=== PATIENT | female | born 1950 | race Caucasian/White ===

== ENCOUNTER → 2018-05-30 | Outpatient (CLI) | payer MEDICARE ==
--- NOTE | 2018-05-31 10:58 | MM ---
Reason for exam: screening (asymptomatic). Last mammogram was performed 16 years and 3 months ago. History: Patient is postmenopausal. Physical Findings: A clinical breast exam by your physician is recommended on an annual basis and results should be correlated with mammographic findings. MG Screening Mammo w CAD Bilateral CC and MLO view(s) were taken. Prior study comparison: February 14, 2002, bilateral screening mammogram. March 26, 1997, bilateral screening mammogram. The breast tissue is heterogeneously dense. This may lower the sensitivity of mammography. Stable benign calcifications. No significant changes when compared with prior studies. ASSESSMENT: Benign, BI-RAD 2 RECOMMENDATION: Routine screening mammogram of both breasts in 1 year.
== END | disposition home or self-care (01) ==
LOC: RADMAMWWP 15:27
PROVIDERS: ATTEND Family Medicine
DX: Z12.31 Encounter for screening mammogram for malignant neoplasm of breast (principal)
CPT/HCPCS: 77067

== ENCOUNTER → 2019-08-15 | Outpatient (CLI) | payer MEDICARE ==
--- NOTE | 2019-08-18 10:53 | MM ---
Reason for exam: screening (asymptomatic). Last mammogram was performed 1 year and 2 months ago. History: Patient is postmenopausal. Physical Findings: A clinical breast exam by your physician is recommended on an annual basis and results should be correlated with mammographic findings. MG 3D Screening Mammo W/Cad Bilateral CC and MLO view(s) were taken. Prior study comparison: May 30, 2018, bilateral MG screening mammo w CAD. The breast tissue is heterogeneously dense. This may lower the sensitivity of mammography. Benign bilateral oil cyst calcifications. Centrally located asymmetric density right CC view is unchanged. No significant changes when compared with prior studies. ASSESSMENT: Benign, BI-RAD 2 RECOMMENDATION: Routine screening mammogram of both breasts in 1 year.
== END | disposition home or self-care (01) ==
LOC: RADMAMWWP 15:29
PROVIDERS: ATTEND Family Medicine
DX: Z12.31 Encounter for screening mammogram for malignant neoplasm of breast (principal)
CPT/HCPCS: 77063; 77067

== ENCOUNTER → 2020-12-22 | Outpatient (CLI) | payer MEDICARE ==
--- NOTE | 2020-12-24 14:46 | MM ---
Reason for exam: screening (asymptomatic). Last mammogram was performed 1 year and 4 months ago. History: Patient is postmenopausal. Physical Findings: A clinical breast exam by your physician is recommended on an annual basis and results should be correlated with mammographic findings. MG 3D Screening Mammo W/Cad Bilateral CC and MLO view(s) were taken. Prior study comparison: August 15, 2019, bilateral MG 3d screening mammo w/cad. May 30, 2018, bilateral MG screening mammo w CAD. The breast tissue is heterogeneously dense. This may lower the sensitivity of mammography. Focal asymmetry central right upper outer quadrant anteriorly is unchanged. Benign oil cyst calcifications bilaterally. No significant changes when compared with prior studies. ASSESSMENT: Benign, BI-RAD 2 RECOMMENDATION: Routine screening mammogram of both breasts in 1 year.
== END | disposition home or self-care (01) ==
LOC: RADMAMWWP 12:24
PROVIDERS: ATTEND Family Medicine
DX: Z12.31 Encounter for screening mammogram for malignant neoplasm of breast (principal); Z78.0 Asymptomatic menopausal state
CPT/HCPCS: 77063; 77067

== ENCOUNTER → 2022-07-21 | Outpatient (CLI) | payer MEDICARE ==
--- NOTE | 2022-07-21 18:20 | CT ---
EXAMINATION TYPE: CT shoulder RT wo con CT DLP: 797.5 mGycm, Automated exposure control for dose reduction was used. DATE OF EXAM: 07/21/2022 5:21 PM COMPARISON: None CLINICAL INDICATION:Female, 71 years old with history of Right shoulder; S42.211A; PHH, fracture TECHNIQUE: Axial images were obtained of the right shoulder without the use of IV contrast. Addition al coronal and sagittal reformatted images and soft tissue and bone window were obtained for review. 3-D reconstruction was created on a separate workstation. FINDINGS: There is an acute comminuted fracture proximal right humerus at the neck extending into the greater tuberosity. No dislocation of the humeral head in relation to the glenoid. There is medial d isplacement of the distal humerus relation to the humeral head approximately 1.6 cm. Some mild shorte leigh is identified. There is surrounding soft tissue edema and trace joint effusion. Moderate AC joint arthropathy with joint space narrowing, sclerosis, subchondral cystic changes. Mild inferior spurring noted. Multilevel degenerative changes of the visualized cervical spine. Centrilobular emphysematous changes . IMPRESSION: Acute comminuted mild to moderately displaced proximal humerus fracture at the neck extending into th e greater tuberosity.
== END | disposition home or self-care (01) ==
LOC: RADCTMAIN 16:30
PROVIDERS: ATTEND Orthopaedic Surgery
DX: S42.251A Displaced fracture of greater tuberosity of right humerus, initial encounter for closed fracture (principal); S42.211A Unspecified displaced fracture of surgical neck of right humerus, initial encounter for closed fracture; S50.01XA Contusion of right elbow, initial encounter; M19.011 Primary osteoarthritis, right shoulder; M25.521 Pain in right elbow; X58.XXXA Exposure to other specified factors, initial encounter

== ENCOUNTER 2022-08-04 12:48 | Inpatient (IN) | payer MEDICARE ==
[2022-08-02 17:47] VITALS: BMI 37.0
[~2022-08-04 12:48] MED LIST: MIDAZOLAM 2 MG/2 ML VIAL IV PRN
[2022-08-04] MEDS ORDERED: ONDANSETRON 4 MG/2 ML VIAL ONE (14:14)
[2022-08-04] MEDS: LACTATED RINGERS 1,000 ML IV ONE ×2 (14:15→19:00)
[2022-08-04 14:17] LABS: Glucose,Whole Blood 112 mg/dL (70-110)
[2022-08-04] MEDS ORDERED: ONDANSETRON 4 MG/2 ML VIAL IVP ONE (14:20)
[2022-08-04] MEDS ORDERED: DEXAMETHASONE SOD PHOSPHATE 4 MG/ML 1 ML VIAL IVP ONE (14:21)
[2022-08-04] MEDS ORDERED: MIDAZOLAM 2 MG/2 ML VIAL IVP ONE (14:22)
[2022-08-04] MEDS ORDERED: fentaNYL (PF) 50 MCG/ML 2 ML AMP IVP ONE (14:22)
[2022-08-04] MEDS ORDERED: fentaNYL (PF) 50 MCG/ML 2 ML AMP ONE (14:37)
[2022-08-04] MEDS ORDERED: PHENYLEPHRINE-0.9% NACL SYG 1,000 MCG/10 ML SYRINGE ONE (14:37)
[2022-08-04] MEDS ORDERED: SUCCINYLCHOLINE CHLORIDE 200 MG/10 ML VIAL IV ONE (14:37)
[2022-08-04] MEDS ORDERED: PROPOFOL 10 MG/ML 20 ML VIAL IV ONE (14:37)
[2022-08-04] MEDS ORDERED: GLYCOPYRROLATE 0.2 MG/ML 2 ML VIAL ONE (14:37)
[2022-08-04] MEDS ORDERED: ROCURONIUM 10 MG/ML (5 ML VIAL) IV ONE (14:37)
[2022-08-04] MEDS ORDERED: ROPIVACAINE 5 MG/ML 30 ML VIAL ONE (14:37)
[2022-08-04] MEDS ORDERED: NEOSTIGMINE 1 MG/ML 10 ML VIAL ONE (14:37)
[2022-08-04] MEDS ORDERED: MIDAZOLAM 2 MG/2 ML VIAL ONE (14:37)
[2022-08-04] MEDS ORDERED: LIDOCAINE 2% INJ 20 MG/ML (2 ML VIAL) ONE (14:37)
[2022-08-04] MEDS ORDERED: TRANEXAMIC 1,000 MG/100ML-NACL PREMIX BAG ONE (14:37)
[2022-08-04] MEDS ORDERED: IV FLUID CONTINUATION 1,000 ML IV ONE (14:41)
[2022-08-04] MEDS ORDERED: TRANEXAMIC 1,000 MG/100ML-NACL 1,000 MG in SALINE 1 100ML.BAG IVPB PRN (15:00)
--- NOTE | 2022-08-04 15:41 | P.ANPRN ---
Procedure Note - Anesthesia - Nerve Block Performed Right Interscalene Single Time Out Performed: Yes Date of Procedure: 08/04/22 Procedure Start Time: 14: Procedure Stop Time: : Location of Patient: PreOp Indication: Acute Post-Operative Pain, Requested by Surgeon Specifically requested for management of pain by DrBalaji: León Doll Sedation Type: Sedate with meaningful contact maintained Preparation: Sterile Prep Position: Sitting Catheter: None Needle Types: Pajunk Needle Gauge: 21 Ultrasound used to visualize needle placement: Yes Ultrasound used to observe medication spread: Yes Injectate: 0.5% Ropivacaine (see comment for volume) (25 ml + 4 mg Dexamethasone) Blood Aspirated: No Pain Paresthesia on Injection Noted: No Resistance on Injection: Normal Image Stored and Saved: Yes Events: Uneventful and Well Tolerated
[2022-08-04] MEDS ORDERED: ceFAZolin 1,000 MG in SODIUM CHLORIDE 0.9% 1,000 ML IRRIGATION ONE (16:21)
--- NOTE | 2022-08-04 16:22 | P.OP ---
Date of Procedure: 08/04/22 Procedure(s) Performed: PREOPERATIVE DIAGNOSES: 1. Right shoulder proximal humerus fracture, 3 part POSTOPERATIVE DIAGNOSES: 1. Right shoulder proximal humerus fracture, 3 part 2. Right shoulder rotator cuff noted to be intact PROCEDURES PERFORMED: 1. Right shoulder proximal humerus fracture open reduction and internal fixation ANESTHESIA: Gen. ACCOUNT STRATEGIST: Radha Mendosa PA-C (assistance with exposure, hemostasis, retraction, fixation, closure, dressing) COMPLICATIONS: None ESTIMATED BLOOD LOSS: 100 mL. DISPOSITION: To post-anesthesia care unit INDICATIONS: Ruth Ann is a 71 year old with a history of falling and sustaining a right shoulder proximal humerus fracture. She is low functional demand. The fracture is displaced and has been analyzed by computed tomography scan, for preoperative planning. I have advised reduction and fixation of the proximal humerus fracture using hardware. I have described the steps of the operation as well as potential risks and complications and the patient wishes to proceed. These risks and potential complications are inclusive of, but not limited to: Bleeding, infection, scarring, discomfort, blood vessel and/or nerve damage, stiffness, hardware irritation, malunion, nonunion, arthritis, further fracture, rotator cuff injury, muscular injury to the deltoid, need for prolonged physical therapy, and other risks, including . I have also explained the seriousness of this kind of fracture and the resultant predictable stiffness and disability that results typically from this kind of fracture even despite modern surgical treatment. The patient wishes to proceed and has signed the consent form. PROCEDURE: After appropriate consent was obtained, the patient was taken to the operating room placed in the supine position. Anesthesia was initiated, and after confirmation of adequate anesthesia, the patient was carefully positioned in the beachchair position. Care was taken to make sure that all pressure points were adequately padded. A small bump was placed beneath the operative scapula. Prepping and draping were completed in the usual aseptic fashion, with the arm draped free, using ChloraPrep. Timeout was called, confirming patient identity, side, procedure, and administration of antibiotics. Standard deltopectoral incision was created with a #10 blade from the inferior border of the clavicle, across the medial aspect of the coracoid process, and down to the deltoid insertion of the humerus. Total size of the incision was approximately 7 inches. The incision was deepened using Bovie electrocautery and meticulous hemostasis was obtained. Subcutaneous dissection was carried down to muscular fascia. The cephalic vein was identified and retracted along with the deltoid laterally. Muscular perforators into the pectoralis muscle were carefully identified and cauterized. The deltopectoral interval was then carefully and bluntly and mobilization of the deep surface of the deltoid was accomplished using a Guzmán elevator. A deltoid retractor was then placed and manual retraction of the pectoralis was performed. Standard self- retaining retractors were applied in the tissues the red stripe adjacent to the strap tendons was incised using cautery and self-retaining retractor was applied beneath the strap tendons. Excellent visualization was accomplished with this method and a small portion of the super area or aspect of the pectoralis tendon was released for good exposure to the humerus. The fracture was identified and organizing hematoma was removed. Direct visualization of the rotator cuff was accomplished by removing subdeltoid and subacromial bursa as necessary. There was no evidence of significant rotator cuff tear or chronic impingement syndrome. The fracture was carefully mobilized with attention to produce as little devascularization of the fragments as possible. Therefore, soft tissue attachments to the fragments were left intact as much as possible. C-arm imaging was used to assess reduction of the fracture. The shaft fragment was realigned with the humeral head fragment using a combs elevator on the medial aspect of the humeral shaft as well as gentle manipulation of the shoulder and proximal fragments. Once an acceptable reduction had been obtained with fluoroscopy, provisional pin fixation was performed and the reduction was rechecked. A Synthes proximal humeral periarticular plate was inserted with the posterior portion of the buttress against the greater tuberosity and the medial portion of the plate just lateral to the bicipital groove. Care was taken to make sure that the biceps tendon was not trapped beneath the plate or in the fr acture. The plate was positioned superiorly or inferiorly as needed to reach an optimal position. This was assessed using C-arm imaging. A preliminary pin was placed and C-arm images were taken with gentle rotation of the of the shoulder to assess in multiple planes. The slotted screw hole was then utilized to place a 3.5 mm bicortical fully threaded cortical screw. The screw was used to bring the shaft to the plate and provide buttress support proximally against the humeral head. The fracture further reduced very nicely with this step. C-arm imaging confirmed proper placement and orientation of the hardware. Proximal locking screws were then placed. All screws were measured for depth and 6 mm was subtracted from the measurement so that there would be no chance of inadvertent joint penetration of the head. A final locking screw was placed in the distal hole of the plate to further secure the shaft fragment. Final C-arm imaging in both the AP plane and a rotated view to see a lateral projection of the proximal humerus, showed excellent alignment of the fracture. All screws were critically evaluated to make sure that there was no significant chance of screw penetration even with some anticipated subsidence of the humeral head. Gentle range of motion was performed in flexion, abduction, and rotation to assess stability of the fracture site. The fracture was completely stable, including the greater tuberosity fragment. Additional fixation of the greater tuberosity fragments was performed with a #2 Fiberwire with reverse mattress sutures through the superior cuff attachment and then through a hole in the plate. Thorough irrigation and final hemostasis was obtained, and final C-arm images were taken and saved. The wound was then thoroughly irrigated with zari l saline and the portion of the lateralis tendon that was released for exposure was repaired using 0 Vicryl suture. Closure of the deltopectoral interval was performed using 0 Vicryl suture followed by 2-0 Vicryl suture in subcu tissues and standard skin closure using Dermabond. Sterile dressing was then applied and the patient's arm was placed into a sling Patient tolerated the procedure well and taken to recovery room in stable condition. Sponge and needle counts were correct.
--- NOTE | 2022-08-04 16:44 | XR ---
Intraoperative/procedural fluoroscopic services were provided for ORIF right humerus fracture. Total fluoroscopy time is 32.6 seconds with a total of 2 submitted images to PACS. Total DAP 0.8926 Gycm2. Please see the operative note for further details.
[2022-08-04] MEDS ORDERED: TEMAZEPAM 15 MG CAP PO PRN (16:48)
[2022-08-04] MEDS ORDERED: HYDROmorphone 0.5 MG/0.5 ML SYRINGE IVP PRN ×3 (16:48)
[2022-08-04] MEDS ORDERED: SENNOSIDES-DOCUSATE SODIUM 1 EACH TAB PO PRN (16:48)
[2022-08-04] MEDS ORDERED: ONDANSETRON 4 MG/2 ML VIAL IVP PRN (16:48)
[2022-08-04] MEDS: HYDROmorphone 0.5 MG/0.5 ML SYRINGE IVP ONE ×2 (17:05→17:25)
[2022-08-04 17:40] LABS: Glucose,Whole Blood 130 mg/dL (70-110)
[2022-08-04] MEDS ORDERED: LACTATED RINGERS 1,000 ML IV ONE (17:45)
[2022-08-04] MEDS: LACTATED RINGERS 1,000 ML IV SCH ×4 (19:00→23:30)
[2022-08-04 21:12] LABS: Glucose,Whole Blood 165 mg/dL (70-110)
[2022-08-04] MEDS: HYDROcodone/APAP 5-325MG 1 EACH TAB PO PRN (23:29)
[2022-08-05] MEDS ORDERED: DEXTROSE 50% SYRINGE 50 ML IVP PRN ×2 (05:58)
[2022-08-05] MEDS: HYDROcodone/APAP 5-325MG 1 EACH TAB PO PRN ×3 (06:31→18:00)
[2022-08-05] MEDS: INSULIN ASPART (NovoLOG) 100 UNIT/ML VIAL SQ SCH ×4 (06:33→20:05)
[2022-08-05 06:34] LABS: Glucose,Whole Blood 136 mg/dL (70-110)
[2022-08-05 06:34] LABS: Basophils % (A) 0 %; Eosinophils % (A) 0 %; HCT 32.8 % (34.0-46.0); HGB 10.6 gm/dL (11.4-16.0); Lymphocytes # (A) 0.6 k/uL (1.0-4.8); Lymphocytes % (A) 7 %; MCH 29.4 pg (25.0-35.0); MCHC 32.2 g/dL (31.0-37.0); MCV 91.3 fL (80.0-100.0); Mean Platelet Volume 7.7; Monocytes # (A) 0.4 k/uL (0-1.0); Monocytes % (A) 4 %; Neutrophils # (A) 7.9 k/uL (1.3-7.7); Neutrophils % (A) 88 %; Platelet Count 234 k/uL (150-450); RBC 3.59 m/uL (3.80-5.40); RDW 13.5 % (11.5-15.5); WBC 8.9 k/uL (3.8-10.6)
[2022-08-05 07:05] LABS: African American GFR (CKD) >90 (>60 ml/min/1.73 sqM); Anion Gap 5 mmol/L; Blood Urea Nitrogen 16 mg/dL (7-17); Calcium 8.6 mg/dL (8.4-10.2); Carbon Dioxide 26 mmol/L (22-30); Chloride 104 mmol/L (98-107); Glucose 141 mg/dL (74-99); Magnesium 1.7 mg/dL (1.6-2.3); Non-African American GFR(CKD) >90 (>60 ml/min/1.73 sqM); Potassium 4.2 mmol/L (3.5-5.1); Sodium 135 mmol/L (137-145)
[2022-08-05] MEDS: amLODIPine 2.5 MG TAB PO SCH (09:37)
--- NOTE | 2022-08-05 11:18 | P.PN ---
Subjective Progress Note Date: 08/05/22 This patient is a 71- year old female who is status-post right proximal humerus open reduction internal fixation on 08/04/[address] Doll. Today is post-operative #1. Patient is examined bedside. She states pain in her right shoulder is well-controlled at this time. She is comfortable. Per nursing, physical therapy evaluated the patient is recommending rehab due to mobility and safety concerns, as patient lives alone. No new complaints. Vital signs stable. Objective - Vital Signs Vital signs: Vital Signs Temp 98.8 F 08/05/22 07:00 Pulse 75 08/05/22 07:00 Resp 17 08/05/22 07:00 BP 115/68 08/05/22 07:00 Pulse Ox 91 L 08/05/22 07:00 FiO2 Intake & Output 08/04/22 08/05/22 08/05/22 18:59 06:59 18:59 Intake Total 1351 250 Output Total 100 Balance 1251 250 Weight 86 kg Intake: IV 1351 Oral 250 Output: Estimated Blood Loss 100 Other: Voiding Method Toilet # Voids 1 1 - Exam On examination, patient is sitting up in bed in no apparent distress. She is alert and orientated x3. On inspection of the right shoulder, there is a shoulder immobilizer in place. There is a clean, dry, intact surgical dressing in place. Motor and sensory function intact right upper extremity. Right upper extremity warm and well perfused. Radial pulse easily palpable. - Labs CBC & Chem 7: 08/05/22 06:05 08/05/22 06:05 Labs: Abnormal Lab Results - Last 24 Hours (Table) 08/04/22 08/04/22 08/04/22 Range/Units 14:14 17:37 21:10 RBC (3.80-5.40) m/uL Hgb (11.4-16.0) gm/dL Hct (34.0-46.0) % Neutrophils # (1.3-7.7) k/uL Lymphocytes # (1.0-4.8) k/uL Sodium (137-145) mmol/L Glucose (74-99) mg/dL POC Glucose (mg/dL) 112 H 130 H 165 H (70-110) mg/dL 06/17/23 06/17/23 06/17/23 Range/Units 06:05 06:05 06:33 RBC 3.59 L (3.80-5.40) m/uL Hgb 10.6 L (11.4-16.0) gm/dL Hct 32.8 L (34.0-46.0) % Neutrophils # 7.9 H (1.3-7.7) k/uL Lymphocytes # 0.6 L (1.0-4.8) k/uL Sodium 135 L (137-145) mmol/L Glucose 141 H (74-99) mg/dL POC Glucose (mg/dL) 136 H (70-110) mg/dL Assessment and Plan Assessment: Status-post right proximal humerus open reduction internal fixation on 08/04/22. Post-op day #1. Plan: - Keep shoulder immobilizer in place at all times. No use of right upper extremity. - Keep operative dressing in place. - Pain medication as needed. - Internal medicine for marcos-op medical management. - Case management consulted for discharge planning. Per physical therapy, rehab may be recommended.
[2022-08-05 11:54] LABS: Glucose,Whole Blood 106 mg/dL (70-110)
[2022-08-05] MEDS ORDERED: MAGNESIUM HYDROXIDE 2,400 MG/10 ML CUP PO PRN (12:09)
[2022-08-05] MEDS: ALBUTEROL NEBULIZED 2.5 MG/3 ML INHALATION PRN ×2 (12:18→22:01)
[2022-08-05] MEDS: LACTATED RINGERS 1,000 ML IV SCH ×2 (12:28→20:14)
--- NOTE | 2022-08-05 12:44 | P.CONS ---
History of Present Illness - Reason for Consult Consult date: 08/05/22 Medical management - History of Present Illness History of present illness; patient is a 71-year-old lady with history of hy pertension, hyperlipidemia who presented to the hospital for elective procedure with orthopedics. Patient apparently had a fall 17 days ago resulting in a right shoulder proximal humerus fracture. The fracture was displaced and orthopedics evaluated the patient and recommended surgery. Patient underwent open reduction internal fixation for the fracture, postoperatively the medicine team were consulted. REVIEW OF SYSTEMS: CONSTITUTIONAL: No fever, no malaise, no fatigue. Complaining of generalized weakness HEENT: No recent visual problems or hearing problems. Denied any sore throat. CARDIOVASCULAR: No chest pain, orthopnea, PND, no palpitations, no syncope. PULMONARY: No shortness of breath, no cough, no hemoptysis. GASTROINTESTINAL: No diarrhea, no nausea, no vomiting, no abdominal pain. NEUROLOGICAL: No headaches HEMATOLOGICAL: Denies any bleeding or petechiae. GENITOURINARY: Denies any burning micturition, frequency, or urgency. MUSCULOSKELETAL/RHEUMATOLOGICAL: Pain in right arm at the site of surgery ENDOCRINE: Denies any polyuria or polydipsia. The rest of the 14-point review of systems is negative. PHYSICAL EXAMINATION: GENERAL: The patient is alert and oriented x3, not in any acute distress. Well developed, well nourished. HEENT: Pupils are round and equally reacting to light. EOMI. No scleral icterus. No conjunctival pallor. Normocephalic, atraumatic. No pharyngeal erythema. No thyromegaly. CARDIOVASCULAR: S1 and S2 present. No murmurs, rubs, or gallops. PULMONARY: Chest is clear to auscultation, no wheezing or crackles. ABDOMEN: Soft, nontender, nondistended, normoactive bowel sounds. No palpable organomegaly. MUSCULOSKELETAL: Right arm sling seen EXTREMITIES: No cyanosis, clubbing, or pedal edema. NEUROLOGICAL: Gross neurological examination did not reveal any focal deficits. SKIN: No rashes. Assessment and plan Status post open reduction internal fixation of right shoulder proximal humerus fracture Hypertension Hyperlipidemia Cut-kqwyoxk-exudhjqns diabetes mellitus Plan; Monitor vital signs Monitor CBC Continue pain management per orthopedics team Continue DVT prophylaxis per orthopedics team Continue Norvasc Continue Lipitor for hyperlipidemia Continue metformin Continue breathing treatments with albuterol inhaler Consult PT and OT Past Medical History Past Medical History: Asthma, Hyperlipidemia, Hypertension Additional Past Medical History / Comment(s): dtr n law states "dislocated rt shoulder after fall when missed a step going upstairs-was seen at [facility] in ER where attempted x3 to reduce the displacement causing a fx rt humurus","prediabetes" History of Any Multi-Drug Resistant Organisms: None Reported Additional Past Surgical History / Comment(s): sinus surgery Additional Past Anesthesia/Blood Transfusion Reaction / Comm: dtr n law stated "b/p dropped to sys 70s w/ sedation in ER at [facility] to reduce disl ocation". no hx blood transfusion Past Psychological History: No Psychological Hx Reported Smoking Status: Former smoker Past Alcohol Use History: None Reported Additional Past Alcohol Use History / Comment(s): quit smoking approx 20 yrs Past Drug Use History: Marijuana Additional Drug Use History / Comment(s): only once in a while to help sleep - Past Family History Mother History Unknown: Yes Medications and Allergies Home Medications Medication Instructions Recorded Confirmed Type Albuterol Inhaler [Ventolin Hfa 1 - 2 puff INHALATION Q6H PRN 08/02/22 08/02/22 History Inhaler] Atorvastatin [Lipitor] 20 mg PO HS 08/02/22 08/02/22 History RX: Ibuprofen 600 mg PO Q6H PRN 08/02/22 08/02/22 History RX: Montelukast Sodium 10 mg PO HS 08/02/22 08/02/22 History Tylenol Unk Dose 3 tab PO Q4H PRN 08/02/22 08/02/22 History amLODIPine [Norvasc] 2.5 mg PO QAM 08/02/22 08/04/22 History metFORMIN HCL [Glucophage] 500 mg PO DAILY 08/02/22 08/02/22 History HYDROcodone/APAP 5-325MG [[place] 1 - 2 tab PO Q6HR PRN #32 tab 08/04/22 Rx 5-325] Ondansetron Odt [Zofran Odt] 4 mg PO Q8HR PRN #14 tab 08/04/22 Rx Sennosides-Docusate Sodium 1 tab PO BID #60 tablet 08/04/22 Rx [Senokot-S] Allergies Allergy/AdvReac Type Severity Reaction Status Date / Time Penicillins Allergy Unknown Verified 08/04/22 13:53 Physical Exam Vitals: Vital Signs Temp Pulse Resp BP Pulse Ox 08/05/22 07:00 98.8 F 75 17 115/68 91 L 08/05/22 02:00 98.3 F 85 16 137/79 91 L 08/04/22 19:40 98.1 F 81 18 133/80 94 L 08/04/22 17:45 55 L 16 119/60 94 L 08/04/22 17:30 57 L 16 106/52 95 08/04/22 17:15 63 16 118/58 95 08/04/22 17:00 73 16 181/92 99 08/04/22 16:48 96.8 F L 85 16 144/67 99 08/04/22 14:27 80 16 151/70 95 08/04/22 14:07 97.8 F 75 16 159/70 95 Intake and Output 08/04/22 08/05/22 08/05/22 22:59 06:59 14:59 Intake Total 501 250 Output Total 100 Balance 401 250 Intake: IV 501 Oral 250 Output: Estimated Blood Loss 100 Other: # Voids 1 1 Weight 86 kg Results CBC & Chem 7: 08/05/22 06:05 08/05/22 06:05 Labs: Abnormal Lab Results - Last 24 Hours (Table) 08/04/22 08/04/22 08/04/22 Range/Units 14:14 17:37 21:10 RBC (3.80-5.40) m/uL Hgb (11.4-16.0) gm/dL Hct (34.0-46.0) % Neutrophils # (1.3-7.7) k/uL Lymphocytes # (1.0-4.8) k/uL Sodium (137-145) mmol/L Glucose (74-99) mg/dL POC Glucose (mg/dL) 112 H 130 H 165 H (70-110) mg/dL 08/05/22 08/05/22 08/05/22 Range/Units 06:05 06:05 06:33 RBC 3.59 L (3.80-5.40) m/uL Hgb 10.6 L (11.4-16.0) gm/dL Hct 32.8 L (34.0-46.0) % Neutrophils # 7.9 H (1.3-7.7) k/uL Lymphocytes # 0.6 L (1.0-4.8) k/uL Sodium 135 L (137-145) mmol/L Glucose 141 H (74-99) mg/dL POC Glucose (mg/dL) 136 H (70-110) mg/dL
[2022-08-05 16:54] LABS: Glucose,Whole Blood 119 mg/dL (70-110)
[2022-08-05 20:05] LABS: Glucose,Whole Blood 110 mg/dL (70-110)
[2022-08-05] MEDS: MONTELUKAST 10 MG TAB PO SCH (20:13)
[2022-08-05] MEDS: ATORVASTATIN 20 MG TAB PO SCH (20:13)
[2022-08-06] MEDS: diphenhydrAMINE 25 MG CAP PO PRN ×2 (00:42→23:03)
[2022-08-06] MEDS: HYDROcodone/APAP 5-325MG 1 EACH TAB PO PRN ×4 (00:42→20:01)
[2022-08-06] MEDS: LACTATED RINGERS 1,000 ML IV SCH ×2 (02:09→07:31)
[2022-08-06 05:55] LABS: Glucose,Whole Blood 95 mg/dL (70-110)
[2022-08-06] MEDS: INSULIN ASPART (NovoLOG) 100 UNIT/ML VIAL SQ SCH ×4 (05:56→20:50)
[2022-08-06] MEDS: metFORMIN 500 MG TAB PO SCH (07:30)
[2022-08-06] MEDS: amLODIPine 2.5 MG TAB PO SCH (07:31)
[2022-08-06] MEDS: ALBUTEROL NEBULIZED 2.5 MG/3 ML INHALATION PRN (08:02)
--- NOTE | 2022-08-06 08:58 | P.PN ---
Subjective Progress Note Date: 08/06/22 This patient is a 71- year old female who is status-post right proximal humerus open reduction internal fixation on 08/04/[address] Doll. Today is post-operative #2. Patient is examined bedside. She is up to the bedside chair. Discussed with patient physical therapy recommendations for discharge to rehab, which the patient and her family are in agreement with. Patient lives alone and is nervous returning home. Patient states pain is well- controlled. No new complaints. Objective - Vital Signs Vital signs: Vital Signs Temp 97.9 F 08/06/22 07:25 Pulse 72 08/06/22 08:17 Resp 16 08/06/22 07:25 BP 159/87 08/06/22 07:25 Pulse Ox 94 L 08/06/22 08:05 FiO2 Intake & Output 08/05/22 08/06/22 08/06/22 18:59 06:59 18:59 Other: Voiding Method Toilet Toilet # Voids 1 1 # Bowel Movements 0 - Exam On examination, patient is sitting up in bed in no apparent distress. She is alert and orientated x3. On inspection of the right shoulder, there is a sh oulder immobilizer in place. There is a clean, dry, intact surgical dressing in place. Motor and sensory function intact right upper extremity. Right upper extremity warm and well perfused. Radial pulse easily palpable. - Labs CBC & Chem 7: 08/05/22 06:05 08/05/22 06:05 Labs: Abnormal Lab Results - Last 24 Hours (Table) 08/05/22 08/05/22 Range/Units 06:05 16:50 POC Glucose (mg/dL) 119 H (70-110) mg/dL Hemoglobin A1c 6.1 H (<=6.0) % Assessment and Plan Assessment: Status-post right proximal humerus open reduction internal fixation on 08/04/22. Post-op day #2. Plan: - Keep shoulder immobilizer in place at all times. No use of right upper extremity. - Keep operative dressing in place. - Pain medication as needed. - Internal medicine for marcos-op medical management. - Case management consulted for discharge planning. Per physical therapy, rehab recommended. Anticipate discharge tomorrow to rehab.
[2022-08-06 11:10] LABS: Glucose,Whole Blood 103 mg/dL (70-110)
[2022-08-06] MEDS: polyethylene glycoL 3350 17 GM POWD.PACK PO SCH (11:42)
[2022-08-06] MEDS: DOCUSATE 100 MG CAP PO SCH ×2 (11:42→19:57)
--- NOTE | 2022-08-06 13:33 | P.PN ---
Subjective Progress Note Date: 08/06/22 patient is a 71-year-old lady with history of hypertension, hyperlipidemia who presented to the hospital for elective procedure with orthopedics. Patient apparently had a fall 17 days ago resulting in a right shoulder proximal humerus fracture. The fracture was displaced and orthopedics evaluated the patient and recommended surgery. Patient underwent open reduction internal fixation for the fracture, postoperatively the medicine team were consulted. 08/06. Patient seen and examined. Patient complaining of constipation, had a bowel movement since admission. States right shoulder pain has improved REVIEW OF SYSTEMS: CONSTITUTIONAL: No fever, no malaise,. CARDIOVASCULAR: No chest pain, no palpitations, no syncope. PULMONARY: No shortness of breath, no cough, GASTROINTESTINAL: No diarrhea, no nausea, no vomiting, no abdominal pain. NEUROLOGICAL: No headaches, no weakness, PHYSICAL EXAMINATION: GENERAL: The patient is alert and oriented x3, not in any acute distress. Well developed, well nourished. HEENT: Pupils are round and equally reacting to light. EOMI. No scleral icterus. No conjunctival pallor. Normocephalic, atraumatic. No pharyngeal erythema. No thyromegaly. CARDIOVASCULAR: S1 and S2 present. No murmurs, rubs, or gallops. PULMONARY: Chest is clear to auscultation, no wheezing or crackles. ABDOMEN: Soft, nontender, nondistended, normoactive bowel sounds. No palpable organomegaly. MUSCULOSKELETAL: No joint swelling or deformity. Right upper extremity sling seen EXTREMITIES: No cyanosis, clubbing, or pedal edema. NEUROLOGICAL: Gross neurological examination did not reveal any focal deficits. SKIN: No rashes. Assessment and plan Status post open reduction internal fixation of right shoulder proximal humerus fracture Hypertension Hyperlipidemia [id number] diabetes mellitus Monitor vital signs Monitor CBC Monitor CMP Continue pain management per orthopedics team Continue DVT prophylaxis per orthopedics team Continue Norvasc Continue Lipitor for hyperlipidemia Continue metformin DC Fluids Aggressive bowel regimen, add Colace and midline Continue breathing treatments with albuterol inhaler Consult PT and OT Objective - Vital Signs Vital signs: Vital Signs Temp 97.9 F 08/06/22 07:25 Pulse 72 08/06/22 08:17 Resp 16 08/06/22 07:25 BP 159/87 08/06/22 07:25 Pulse Ox 94 L 08/06/22 08:05 FiO2 Intake & Output 08/05/22 08/06/22 08/06/22 18:59 06:59 18:59 Other: Voiding Method Toilet Toilet # Voids 1 1 # Bowel Movements 0 - Labs CBC & Chem 7: 08/05/22 06:05 08/05/22 06:05 Labs: Abnormal Lab Results - Last 24 Hours (Table) 08/05/22 08/05/22 Range/Units 06:05 16:50 POC Glucose (mg/dL) 119 H (70-110) mg/dL Hemoglobin A1c 6.1 H (<=6.0) %
[2022-08-06 16:13] LABS: Glucose,Whole Blood 121 mg/dL (70-110)
[2022-08-06] MEDS: ATORVASTATIN 20 MG TAB PO SCH (19:57)
[2022-08-06] MEDS: MONTELUKAST 10 MG TAB PO SCH (19:57)
[2022-08-06 20:39] LABS: Glucose,Whole Blood 106 mg/dL (70-110)
[2022-08-07 05:42] LABS: Glucose,Whole Blood 102 mg/dL (70-110)
[2022-08-07] MEDS: INSULIN ASPART (NovoLOG) 100 UNIT/ML VIAL SQ SCH ×4 (05:48→20:00)
[2022-08-07] MEDS: ALBUTEROL NEBULIZED 2.5 MG/3 ML INHALATION PRN (06:07)
[2022-08-07 07:35] LABS: HCT 33.1 % (34.0-46.0); HGB 10.7 gm/dL (11.4-16.0); MCH 29.6 pg (25.0-35.0); MCHC 32.3 g/dL (31.0-37.0); MCV 91.6 fL (80.0-100.0); Mean Platelet Volume 7.3; Platelet Count 204 k/uL (150-450); RBC 3.62 m/uL (3.80-5.40); RDW 13.6 % (11.5-15.5); WBC 6.8 k/uL (3.8-10.6)
[2022-08-07 07:52] LABS: ALT 18 U/L (4-34); AST 35 U/L (14-36); African American GFR (CKD) >90 (>60 ml/min/1.73 sqM); Albumin 3.4 g/dL (3.5-5.0); Albumin/Globulin Ratio 1.4; Alkaline Phosphatase 110 U/L (38-126); Anion Gap 5 mmol/L; Blood Urea Nitrogen 11 mg/dL (7-17); Calcium 8.8 mg/dL (8.4-10.2); Carbon Dioxide 30 mmol/L (22-30); Chloride 103 mmol/L (98-107); Globulin 2.4 g/dL; Glucose 111 mg/dL (74-99); Non-African American GFR(CKD) >90 (>60 ml/min/1.73 sqM); Potassium 3.8 mmol/L (3.5-5.1); Sodium 138 mmol/L (137-145); Total Bilirubin 0.6 mg/dL (0.2-1.3); Total Protein 5.8 g/dL (6.3-8.2)
[2022-08-07] MEDS: HYDROcodone/APAP 5-325MG 1 EACH TAB PO PRN ×2 (08:54→17:49)
[2022-08-07] MEDS: amLODIPine 2.5 MG TAB PO SCH (08:54)
[2022-08-07] MEDS: DOCUSATE 100 MG CAP PO SCH ×2 (08:55→19:59)
[2022-08-07] MEDS: metFORMIN 500 MG TAB PO SCH (08:55)
[2022-08-07] MEDS: polyethylene glycoL 3350 17 GM POWD.PACK PO SCH (08:55)
[2022-08-07 11:23] LABS: Glucose,Whole Blood 115 mg/dL (70-110)
--- NOTE | 2022-08-07 13:53 | P.PN ---
Subjective Progress Note Date: 08/07/22 patient is a 71-year-old lady with history of hypertension, hyperlipidemia who presented to the hospital for elective procedure with orthopedics. Patient apparently had a fall 17 days ago resulting in a right shoulder proximal humerus fracture. The fracture was displaced and orthopedics evaluated the patient and recommended surgery. Patient underwent open reduction internal fixation for the fracture, postoperatively the medicine team were consulted. 08/06. Patient seen and examined. Patient complaining of constipation, had a bowel movement since admission. States right shoulder pain has improved 08/07. Patient seen and examined. Sitting upright in the chair. Worked with physical therapy and OT, states she feels much better REVIEW OF SYSTEMS: CONSTITUTIONAL: No fever, no malaise,. CARDIOVASCULAR: No chest pain, no palpitations, no syncope. PULMONARY: No shortness of breath, no cough, GASTROINTESTINAL: No diarrhea, no nausea, no vomiting, no abdominal pain. NEUROLOGICAL: No headaches, no weakness, PHYSICAL EXAMINATION: GENERAL: The patient is alert and oriented x3, not in any acute distress. Well developed, well nourished. HEENT: Pupils are round and equally reacting to light. EOMI. No scleral icterus. No conjunctival pallor. Normocephalic, atraumatic. No pharyngeal erythema. No thyromegaly. CARDIOVASCULAR: S1 and S2 present. No murmurs, rubs, or gallops. PULMONARY: Chest is clear to auscultation, no wheezing or crackles. ABDOMEN: Soft, nontender, nondistended, normoactive bowel sounds. No palpable organomegaly. MUSCULOSKELETAL: No joint swelling or deformity. Right upper extremity sling seen EXTREMITIES: No cyanosis, clubbing, or pedal edema. NEUROLOGICAL: Gross neurological examination did not reveal any focal deficits. SKIN: No rashes. Assessment and plan Status post open reduction internal fixation of right shoulder proximal humerus fracture Hypertension Hyperlipidemia [id number]-ucplhuutf diabetes mellitus Plan; Monitor vital signs Monitor CBC Monitor CMP Continue pain management per orthopedics team Continue DVT prophylaxis per orthopedics team Continue Norvasc Continue Lipitor for hyperlipidemia Continue metformin Aggressive bowel regimen, with Colace and midline Continue breathing treatments with albuterol inhaler Follow-up on PT and OT recommendations Objective - Vital Signs Vital signs: Vital Signs Temp 98.4 F 08/07/22 06:57 Pulse 81 08/07/22 06:57 Resp 17 08/07/22 06:57 BP 149/80 08/07/22 06:57 Pulse Ox 97 08/07/22 09:14 FiO2 Intake & Output 08/06/22 08/07/22 08/07/22 18:59 06:59 18:59 Other: Voiding Method Toilet # Voids 1 3 - Labs CBC & Chem 7: 08/07/22 06:42 08/07/22 06:42 Labs: Abnormal Lab Results - Last 24 Hours (Table) 08/06/22 08/07/22 08/07/22 Range/Units 16:12 06:42 06:42 RBC 3.62 L (3.80-5.40) m/uL Hgb 10.7 L (11.4-16.0) gm/dL Hct 33.1 L (34.0-46.0) % Glucose 111 H (74-99) mg/dL POC Glucose (mg/dL) 121 H (70-110) mg/dL Total Protein 5.8 L (6.3-8.2) g/dL Albumin 3.4 L (3.5-5.0) g/dL 08/07/22 Range/Units 11:21 RBC (3.80-5.40) m/uL Hgb (11.4-16.0) gm/dL Hct (34.0-46.0) % Glucose (74-99) mg/dL POC Glucose (mg/dL) 115 H (70-110) mg/dL Total Protein (6.3-8.2) g/dL Albumin (3.5-5.0) g/dL
[2022-08-07] MEDS ORDERED: MAGNESIUM HYDROXIDE 2,400 MG/30 ML CUP PO PRN (15:56)
[2022-08-07 16:51] LABS: Glucose,Whole Blood 111 mg/dL (70-110)
[2022-08-07 19:55] LABS: Glucose,Whole Blood 108 mg/dL (70-110)
[2022-08-07] MEDS: ATORVASTATIN 20 MG TAB PO SCH (19:59)
[2022-08-07] MEDS: MONTELUKAST 10 MG TAB PO SCH (19:59)
[2022-08-08] MEDS: HYDROcodone/APAP 5-325MG 1 EACH TAB PO PRN ×2 (00:58→08:39)
[2022-08-08 06:08] LABS: Glucose,Whole Blood 98 mg/dL (70-110)
[2022-08-08] MEDS: INSULIN ASPART (NovoLOG) 100 UNIT/ML VIAL SQ SCH ×2 (06:19→12:38)
[2022-08-08] MEDS: DOCUSATE 100 MG CAP PO SCH (08:39)
[2022-08-08] MEDS: metFORMIN 500 MG TAB PO SCH (08:39)
[2022-08-08] MEDS: polyethylene glycoL 3350 17 GM POWD.PACK PO SCH (08:39)
[2022-08-08] MEDS: amLODIPine 2.5 MG TAB PO SCH (08:39)
[2022-08-08 12:00] LABS: Glucose,Whole Blood 110 mg/dL (70-110)
--- NOTE | 2022-08-08 12:15 | P.DS ---
Providers Date of admission: 08/06/22 09:03 Expected date of discharge: 08/07/22 Attending physician: León Doll Consults: 08/04/22 16:50 Consult Physician Routine Consulting Provider: Anila Rodriguez Consult Reason/Comments: medical management Do you want consulting provider notified?: Yes Primary care physician: Mega Beebe - Discharge Diagnosis(es) (1) Status post open reduction and internal fixation (ORIF) of fracture Current Visit: Yes Status: Acute (2) Right humeral fracture Current Visit: Yes Status: Acute Hospital Course: Ruth Ann is a 71 year old with a history of falling and sustaining a right shoulder proximal humerus fracture. She is low functional demand. The fracture is displaced and has been analyzed by computed tomography scan, for preoperative planning. I have advised reduction and fixation of the proximal humerus fracture using hardware. I have described the steps of the operation as well as potential risks and complications and the patient wishes to proceed. The patient is admitted to [facility] on 08/04/2022 for open reduction showed fixation of the right proximal humerus. The procedures performed without complication or sequelae. The patient is doing fairly well postoperatively. She is having some difficulty with functional activities and ADLs. It is recommended by physical therapy that she go to inpatient rehab for a short stay. The patient is willing to be transferred to inpatient rehab. She may be transferred today if cleared medically and placement is arranged. Please see med rec for accurate list of home medications. Patient Condition at Discharge: Stable Plan - Discharge Summary Discharge Rx Participant: No New Discharge Prescriptions: New HYDROcodone/APAP 5-325MG [[place] 5-325] 1 - 2 tab PO Q6HR PRN #32 tab PRN Reason: Pain Sennosides-Docusate Sodium [Senokot-S] 1 tab PO BID #60 tablet Ondansetron Odt [Zofran Odt] 4 mg PO Q8HR PRN #14 tab PRN Reason: Nausea No Action amLODIPine [Norvasc] 2.5 mg PO QAM metFORMIN HCL [Glucophage] 500 mg PO DAILY Albuterol Inhaler [Ventolin Hfa Inhaler] 1 - 2 puff INHALATION Q6H PRN PRN Reason: sob Ibuprofen 600 mg PO Q6H PRN PRN Reason: Pain Montelukast Sodium 10 mg PO HS Atorvastatin [Lipitor] 20 mg PO HS Tylenol Unk Dose 3 tab PO Q4H PRN PRN Reason: Pain Discharge Medication List Albuterol Inhaler [Ventolin Hfa Inhaler] 1 - 2 puff INHALATION Q6H PRN 08/02/22 [History] Atorvastatin [Lipitor] 20 mg PO HS 08/02/22 [History] Ibuprofen 600 mg PO Q6H PRN 08/02/22 [History] Montelukast Sodium 10 mg PO HS 08/02/22 [History] Tylenol Unk Dose 3 tab PO Q4H PRN 08/02/22 [History] amLODIPine [Norvasc] 2.5 mg PO QAM 08/02/22 [History] metFORMIN HCL [Glucophage] 500 mg PO DAILY 08/02/22 [History] HYDROcodone/APAP 5-325MG [[place] 5-325] 1 - 2 tab PO Q6HR PRN #32 tab 08/04/22 [Rx] Ondansetron Odt [Zofran Odt] 4 mg PO Q8HR PRN #14 tab 08/04/22 [Rx] Sennosides-Docusate Sodium [Senokot-S] 1 tab PO BID #60 tablet 08/04/22 [Rx] Follow up Appointment(s)/Referral(s): Radha Mendosa, PAC [[facility]] - 08/16/22 2:30 pm Activity/Diet/Wound Care/Special Instructions: Maintain shoulder immobilizer. Keep Optifoam dressing intact 7 days. No use of right arm. Discharge Disposition: TRANSFER TO SNF/ECF
--- NOTE | 2022-08-08 12:39 | P.PN ---
Subjective Progress Note Date: 08/08/22 patient is a 71-year-old lady with history of hypertension, hyperlipidemia who presented to the hospital for elective procedure with orthopedics. Patient apparently had a fall 17 days ago resulting in a right shoulder proximal humerus fracture. The fracture was displaced and orthopedics evaluated the patient and recommended surgery. Patient underwent open reduction internal fixation for the fracture, postoperatively the medicine team were consulted. 08/06. Patient seen and examined. Patient complaining of constipation, had a bowel movement since admission. States right shoulder pain has improved 08/07. Patient seen and examined. Sitting upright in the chair. Worked with physical therapy and OT, states she feels much better 08/08. Patient seen and examined. Complaining of constipation. Passing gas, no bowel movement yet REVIEW OF SYSTEMS: CONSTITUTIONAL: No fever, no malaise,. CARDIOVASCULAR: No chest pain, no palpitations, no syncope. PULMONARY: No shortness of breath, no cough, GASTROINTESTINAL: No diarrhea, no nausea, no vomiting, no abdominal pain. NEUROLOGICAL: No headaches, no weakness, PHYSICAL EXAMINATION: GENERAL: The patient is alert and oriented x3, not in any acute distress. Well developed, well nourished. HEENT: Pupils are round and equally reacting to light. EOMI. No scleral icterus. No conjunctival pallor. Normocephalic, atraumatic. No pharyngeal erythema. No thyromegaly. CARDIOVASCULAR: S1 and S2 present. No murmurs, rubs, or gallops. PULMONARY: Chest is clear to auscultation, no wheezing or crackles. ABDOMEN: Soft, nontender, nondistended, normoactive bowel sounds. No palpable organomegaly. MUSCULOSKELETAL: No joint swelling or deformity. Right upper extremity sling seen EXTREMITIES: No cyanosis, clubbing, or pedal edema. NEUROLOGICAL: Gross neurological examination did not reveal any focal deficits. SKIN: No rashes. Assessment and plan Status post open reduction internal fixation of right shoulder proximal humerus fracture Hypertension Hyperlipidemia [id number]-myyjdfhjd diabetes mellitus Plan; Monitor vital signs Monitor CBC Monitor CMP Continue pain management per orthopedics team Continue DVT prophylaxis per orthopedics team Continue Norvasc Continue Lipitor for hyperlipidemia Continue metformin Aggressive bowel regimen, with Colace and midline Continue breathing treatments with albuterol inhaler Follow-up on PT and OT recommendations Patient medically stable for discharge Objective - Vital Signs Vital signs: Vital Signs Temp 97.6 F 08/08/22 07:26 Pulse 79 08/08/22 07:26 Resp 16 08/08/22 07:26 BP 146/85 08/08/22 07:26 Pulse Ox 94 L 08/08/22 08:13 FiO2 21 08/08/22 08:13 Intake & Output 08/07/22 08/08/22 08/08/22 18:59 06:59 18:59 Intake Total 300 Balance 300 Intake: Oral 300 Other: Voiding Method Toilet Toilet # Voids 3 3 - Labs CBC & Chem 7: 08/07/22 06:42 08/07/22 06:42 Labs: Abnormal Lab Results - Last 24 Hours (Table) 08/07/22 Range/Units 16:50 POC Glucose (mg/dL) 111 H (70-110) mg/dL
[2022-08-08 14:30] VITALS: BP 140/83; PULSE 93; RESP 15; TEMP 98.1
== END 2022-08-08 15:40 | DRG 494 ==
LOC: OR 12:48 → 4SSUR 16:53 → OR 08-06 09:03
PROVIDERS: ADMIT Orthopaedic Surgery; ATTEND Orthopaedic Surgery
PROC: 0PSF04Z Reposition Right Humeral Shaft with Internal Fixation Device, Open Approach (ICD-10-PCS; principal; 2022-08-04 15:45)
DX: S42.231A 3-part fracture of surgical neck of right humerus, initial encounter for closed fracture (principal); E11.9 Type 2 diabetes mellitus without complications; Z28.310 Unvaccinated for COVID-19; I10 Essential (primary) hypertension; J45.909 Unspecified asthma, uncomplicated; M19.011 Primary osteoarthritis, right shoulder; K59.00 Constipation, unspecified; E78.2 Mixed hyperlipidemia; Z79.84 Long term (current) use of oral hypoglycemic drugs; Z79.899 Other long term (current) drug therapy; Z87.891 Personal history of nicotine dependence; Z91.81 History of falling; Z88.0 Allergy status to penicillin; W10.9XXA Fall (on) (from) unspecified stairs and steps, initial encounter
CPT/HCPCS: 64415; 80048; 80053; 83036; 83735; 85025; 85027; 94640; 94760

== ENCOUNTER → 2024-02-08 | Outpatient (CLI) | payer MEDICARE ==
--- NOTE | 2024-02-08 14:10 | MM ---
Reason for Exam: Screening (asymptomatic). Last mammogram was performed 1 year(s) and 10 month(s) ago. Patient History: Menarche at age 12. Patient has no children. Left ovary removed at age 28. Right ovary removed at age 28. Hysterectomy at age 28. Postmenopausal. Risk Values: Antonia 5 year model risk: 1.8%. NCI Lifetime model risk: 3.9%. Prior Study Comparison: 08/15/2019 Bilateral Screening Mammogram, [facility]. 12/22/2020 Bilateral Screening Mammogram, [facility]. 04/07/2022 Bilateral MG 3D screening mammo w/cad, [facility]. Tissue Density: The breasts are heterogeneously dense, which may obscure small masses. Findings: Analyzed By CAD. There is no suspicious group of microcalcifications or new suspicious mass in either breast. Overall Assessment: Negative, BI-RAD 1 Management: Screening Mammogram of both breasts in 1 year. . Patient should continue monthly self-breast exams. A clinical breast exam by your physician is recommended on an annual basis. This exam should not preclude additional follow-up of suspicious palpable abnormalities. Note on Antonia scores and lifetime risk: 1. A Antonia score greater than 3% is considered moderate risk. If this is the case, consider specialist referral to assess eligibility for a risk reducing agent. 2. If overall lifetime risk for the development of breast cancer is 20% or higher, the patient may qualify for future screening with alternating mammogram and breast MRI. [facility], , 02/08/2024 2:07 PM. Electronically signed and approved by: Darian Horowitz M.D. Radiolog[facility]
== END | disposition home or self-care (01) ==
LOC: RADUSWWP 12:36
PROVIDERS: ATTEND Family Medicine
DX: Z12.31 Encounter for screening mammogram for malignant neoplasm of breast (principal); Z90.722 Acquired absence of ovaries, bilateral; Z78.0 Asymptomatic menopausal state; R92.333 Mammographic heterogeneous density, bilateral breasts
CPT/HCPCS: 77063; 77067